=== PATIENT | female | born 1970 | race African-American/Black ===

== ENCOUNTER 2021-08-10 11:49 | Emergency (ER) | payer SELFPAY ==
--- NOTE | 2021-08-10 | ECG_ITS ---
Test Reason : high blood pressure Blood Pressure : / mmHG Vent. Rate : 077 BPM Atrial Rate : 077 BPM P-R Int : 152 ms QRS Dur : 080 ms QT Int : 368 ms P-R-T Axes : 057 002 145 degrees QTc Int : 416 ms Normal sinus rhythm Voltage criteria for left ventricular hypertrophy ( R in aVL , Sokolow-Owen , [place] product ) Anterior infarct (cited on or before 25-JAN-2018) Abnormal ECG When compared with ECG of 25-JAN-2018 09:06, Nonspecific T wave abnormality now evident in Inferior leads T wave inversion now evident in Lateral leads Referred By: Generic ED Physician Electronically Signed By:STEPHAN WATKINS MD
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
[2021-08-10 12:03] VITALS: BP 252/138; PULSE 92; TEMP 36.8; O2SAT 98; BMI 35.0
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
[2021-08-10 15:03] VITALS: BP 220/110; RESP 18
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
[2021-08-10] MEDS: oxyCODONE HCl Immed Release 5 MG TABLET PO (15:44)
== END 2021-08-10 15:49 | disposition home or self-care (01) ==
PROVIDERS: Emergency Provider Emergency Medicine
DX: S20.213A Contusion of bilateral front wall of thorax, initial encounter (principal); R51.9 Headache, unspecified; V43.52XA Car driver injured in collision with other type car in traffic accident, initial encounter; Y93.9 Activity, unspecified; Y92.410 Unspecified street and highway as the place of occurrence of the external cause; Y99.9 Unspecified external cause status; Z79.899 Other long term (current) drug therapy
CPT/HCPCS: 71046; 93005; 99284

== ENCOUNTER 2022-05-23 10:18 | Emergency (ER) | payer MEDICARE, MEDICAID, SELFPAY ==
--- NOTE | ~2022-05-23 | XR_ITS ---
EXAMINATION: XR CHEST CLINICAL INFORMATION: Shortness of breath COMPARISON: Prior chest July 2021 TECHNIQUE: 2 views of the chest were obtained. FINDINGS: No significant abnormality is noted involving the heart, lungs, mediastinum, bony thorax or soft tissues. XR/XR chest 2V IMPRESSION: Unremarkable examination.
--- NOTE | ~2022-05-23 | CT_ITS ---
EXAMINATION: CT HEAD WITHOUT CONTRAST CLINICAL INFORMATION: Hypertension. COMPARISON: None TECHNIQUE: Contiguous axial imaging was performed from the skull base to vertex without intravenous administration of contrast. This CT examination was performed using dose optimization techniques as appropriate, variously including the following: *Automated exposure control *Adjustment of mA and/or kV according to patient size (this includes techniques or standardized protocols for targeted exams where dose is matched to indication/reason for exam; i.e. extremities or head) *Use of iterative reconstruction technique DLP: 648 mGy-cm FINDINGS: No intracranial hemorrhage, large infarction, or mass lesion is seen. No extra-axial collection is appreciated. The ventricles are normal in size and configuration without evidence of hydrocephalus. The visualized paranasal sinuses and mastoid air cells are clear. CT/CT head/brain wo IV con IMPRESSION: No acute intracranial finding.
--- NOTE | 2022-05-23 10:30 | ED.GENADULT ---
HPI - General Adult General Chief complaint: General Medical Stated complaint: High Bp Time Seen by Provider: 05/23/22 10:30 Source: patient Mode of arrival: ambulatory Limitations: no limitations History of Present Illness HPI narrative: Patient is a 51 year old assigned female at with a history of hypertension presenting to the emergency department today with high blood pressure and shortness of breath. Patient states that she was seen by her PCP 5 days ago and they recommended she come to the hospital but she wanted to wait. Patient states that she has a history of high blood pressure for which she takes hydralazine, clonidine, and amlodipine. Patient states that when she walks, she gets short of breath easily. Patient states that she needs multiple pillows behind her to sleep at night. Patient denies any dizziness, lightheadedness, abdominal pain, nausea, vomiting, fever, chills, blurry vision, double vision, loss of vision, chest pain, back pain, night sweats, pain with urination, increased urinary frequency, increased urinary urgency, blood in her urine or stool, syncope or a near syncopal episode, recent trauma or falls, bowel incontinence, bladder incontinence, bowel retention, bladder retention, or any other complaints at this time. Onset (ago): day(s) (5) Severity: mild Severity scale (1-10): 4 Relieving factors: none Exacerbating factors: none Associated symptoms: shortness of breath Treatments prior to arrival: none Related Data Previous Rx's Medication Instructions Recorded ibuprofen 600 mg tablet 600 mg PO Q6H PRN fever or pain 08/10/21 #30 tabs oxycodone-acetaminophen 7.5 mg-325 1 tab PO Q6H PRN pain #8 tabs 08/10/21 mg tablet (Percocet) Allergies Allergy/AdvReac Type Severity Reaction Status Date / Time No Known Allergies Allergy Unverified 04/04/20 19:31 [No Known Allergies*] Review of Systems Constitutional: Constitutional: Reports no additional constitutional complaints, Denies chills, Denies fever(s) and Denies night sweats Eyes: Eyes: Reports no additional eye complaints, Denies blurry vision, Denies change in vision, Denies diplopia, Denies eye discharge, Denies loss of vision and Denies eye pain ENT: Denies dizziness Cardiovascular: Cardiovascular: Reports no additional cardiovascular complaints, Denies chest pain, Denies lightheadedness, Denies Loss of Consciousness and Reports dyspnea Respiratory: Respiratory: Reports no additional respiratory complaints and Reports dyspnea Gastrointestinal: Gastrointestinal: Reports no additional gastrointestinal complaints, Denies abdominal pain, Denies melena, Denies hematochezia, Denies change in bowel habits and Denies change in stool character Genitourinary: Genitourinary: Denies hematuria, Denies urinary frequency, Denies dysuria, Denies urinary incontinence, Denies urinary hesitancy and Denies urinary urgency Musculoskeletal: Musculoskeletal: Reports no additional musculoskeletal complaints, Denies numbness and Denies tingling Neurologic: Denies dizziness, Denies loss of vision, Denies numbness and Denies tingling Psychiatric: Psychiatric: Reports no additional psychiatric complaints Endocrine: Endocrine: Reports no additional endocrine complaints Hematologic/Lymphatic: Hematologic/Lymphatic: Reports no additional hematologic/lymphatic complaints Allergic/Immunologic: Allergic/Immunologic: Reports no additional allergic/immunologic complaints PMFSH Past Medical History Attestation statement: The following information was validated with the patient. Source: old records reviewed Medical History Bipolar 1 disorder, depressed Hypertension PTSD (post-traumatic stress disorder) Social History Social History Alcohol intake: never Smoked in Last 30 Days: No Use of substances other than those prescribed or required for medical reasons: Yes Substance Use Type: Crack/Cocaine Substance Use Frequency Other:: history only not current Advance Directives: No Advance Directives Information Provided: Yes Patient : No Physical Exam ED Vital Signs: Vital Signs - 24 hr 05/23/22 10:32 05/23/22 10:57 05/23/22 11:16 Temperature 97 F Pulse Rate 85 88 88 Respiratory Rate 19 18 20 Blood Pressure 229/141 H 189/104 H 190/104 H Pulse Oximetry 98 100 98 Oxygen Delivery Method Room Air Room Air 05/23/22 11:56 05/23/22 12:39 05/23/22 13:20 Temperature Pulse Rate 81 77 77 Respiratory Rate 18 19 22 H Blood Pressure 176/98 H 166/92 H 185/102 H Pulse Oximetry 99 99 98 Oxygen Delivery Method Room Air Room Air Room Air BMI result Body Mass Index 30.9 Const General: cooperative, no acute distress, alert and awake Nutritional Appearance: well nourished Orientation/consciousness: patient oriented x3 Limitations: no limitations HENMT Head: Yes normal to inspection and Yes atraumatic Ears: hearing grossly normal bilaterally and external ears normal General nose exam: Normal external nose present, no nasal discharge noted and no epistaxis Face and sinus: Yes normal facial exam, No abrasion and No laceration Mouth: Normal oral and palatal mucosa present, no drooling and no muffled voice Eyes General: appearance normal, both eyes and all related structures Periorbital: periorbital findings normal Eyelids: Yes eyelids normal Conjunctivae: conjunctivae normal Pupils: Equal, round and reactive pupils present EOM: EOMs intact bilaterally Neck Neck: Yes normal visual inspection, Yes full ROM and Yes no lymphadenopathy Chest Chest palpation & inspection: normal inspection of the chest Resp Effort & Inspection: normal respiratory effort and able to speak in complete sentences Auscultation: clear to auscultation bilaterally Cardio Rate: regular rate Rhythm: regular rhythm GI Inspection: Yes normal to inspection Palpation (GI): Soft to palpation, not firm, nontender and no guarding Neuro General: patient oriented x3 and moves all extremities Cranial nerves: Yes Equal, round and reactive pupils present Cognition (Neuro): normal cognition Motor exam (neuro): 5/5 motor strength present throughout Sensory Exam: Normal double simultaneous stimulation for sensation Coordination: [id number] test normal Extrem General: Yes normal to inspection, Yes full ROM and Yes capillary refill normal Psych Appearance: grossly normal Mental Status: mental status grossly normal Affect: normal affect Attitude: cooperative Thought process: Normal thought process present Thought content: Normal thought content present Insight: Good insight present (Psych) Medical Decision Making [facility] Narrative Medical decision making narrative: Patient is a 51 year old assigned female at with a history of HTN presenting to the emergency department today with shortness of breath and hypertension. Patient's physical exam showed hypertension but was otherwise unremarkable. Patient's blood work showed a markedly elevated BNP of 852, an initial elevated troponin of 19.2 with a repeat troponin of 20.2. Patient's EKG was unremarkable. Patient's chest x-ray and head CT showed no acute process. Patient was given IV lasix which helped her blood pressure significantly. Patient's clinical presentation is most consistent with fluid overload / fluid retention / congestive heart failure exacerbation. I explained my physical exam findings as well as all test results to the patient. I answered all questions asked by the patient. I explained to the patient that she would need admission for continued IV diuretics however, the patient stated that she absolutely would not be staying in the hospital. I explained to the patient that leaving against medical advice would put her at risk for heart attack, stroke, , permanent disability, etc. Patient verbalized understanding of all those said risks and stated that she still wants to leave against medical advice. I stressed the importance of the patient returning to the emergency department immediately if her symptoms were to worsen or if she were to develop any dizziness, shortness of breath, difficulty breathing, chest pain, blurry vision, loss of vision, nausea, vomiting, abdominal pain, fever, chills, back pain, or any other complaints. Patient verbalized understanding and left against medical advice. Medical Records Medical records reviewed: Yes I reviewed the patient's medical records. Lab Data Lab results reviewed: Yes I reviewed the patient's lab results. Result diagrams: 05/23/22 10:59 05/23/22 10:59 Labs: Lab Results 05/23/22 05/23/22 05/23/22 Range/Units 10:59 10:59 10:59 WBC 5.1 (4.8-10.8) X10*3/uL RBC 4.60 (4.20-5.50) X10*6/uL Hgb 12.0 (12.0-16.0) g/dl Hct 37.5 (37.0-47.0) % MCV 81.5 (80.0-98.0) fL MCH 26.1 L (27.0-33.0) pg MCHC 32.0 (31.0-35.0) g/dl RDW 15.1 (11.0-16.0) % Plt Count 208 (160-400) X10*3/uL MPV 9.5 (9.4-12.3) fL Immature Gran % (Auto) 0.2 (0.0-0.4) % Neut % (Auto) 50.0 (45-73) % Lymph % (Auto) 37.4 (20-40) % [place] % (Auto) 10.2 (2-11) % Eos % (Auto) 2.0 (0-4) % Baso % (Auto) 0.2 (0-2) % Lymph # (Auto) 1.9 (1.2-4.9) X10*3/uL [place] # (Auto) 0.5 (0.1-1.2) X10*3/uL Eos # (Auto) 0.1 (0.0-0.4) X10*3/uL Baso # (Auto) 0.0 (0.0-0.2) X10*3/uL Abs Immat Gran (auto) 0.01 (0.00-0.03) X10*3/uL Absolute Neuts (auto) 2.5 (2.0-8.3) x10*3/uL Absolute Nucleated RBC 0.000 (0.0-0.012) X10*3/uL Nucleated RBC % (auto) 0.0 (0.0-0.2) /100WBC Sodium 143 (135-145) mmol/L Potassium 4.1 (3.3-5.1) mmol/L Chloride 109 H (96-108) mmol/L Carbon Dioxide 24 (22-29) mmol/L Anion Gap 14 (12-20) BUN 20 H (9-16) mg/dL Creatinine 1.36 (0.5-1.4) mg/dL Estim Creat Clear Calc 49.4 Estimated GFR 41 Random Glucose 80 (60-115) mg/dL Calcium 8.9 (8.4-10.2) mg/dL Magnesium 2.1 (1.6-2.6) mg/dL Total Bilirubin 0.4 (0.0-1.0) mg/dL AST 22 (5-31) U/L ALT 22 (0-31) U/L Alkaline Phosphatase 90 (39-117) U/L Troponin I High Sens 19.2 H (<3.5-17.0) ng/L B-Natriuretic Peptide (<100) pg/mL Total Protein 6.8 (6.5-8.0) g/dL Albumin 4.1 (3.5-5.0) g/dL Urine Color Urine Appearance Urine pH (5.0-9.0) Ur Specific [place] (1.005-1.025) Urine Protein (Neg-Trace) mg/dL Urine Glucose (UA) (Negative) mg/dL Urine Ketones (Negative) mg/dL Urine Blood (Negative) Urine Nitrite (Negative) Ur Leukocyte Esterase (Negative) 05/23/22 05/23/22 05/23/22 Range/Units 10:59 13:20 13:24 WBC (4.8-10.8) X10*3/uL RBC (4.20-5.50) X10*6/uL Hgb (12.0-16.0) g/dl Hct (37.0-47.0) % MCV (80.0-98.0) fL MCH (27.0-33.0) pg MCHC (31.0-35.0) g/dl RDW (11.0-16.0) % Plt Count (160-400) X10*3/uL MPV (9.4-12.3) fL Immature Gran % (Auto) (0.0-0.4) % Neut % (Auto) (45-73) % Lymph % (Auto) (20-40) % [place] % (Auto) (2-11) % Eos % (Auto) (0-4) % Baso % (Auto) (0-2) % Lymph # (Auto) (1.2-4.9) X10*3/uL [place] # (Auto) (0.1-1.2) X10*3/uL Eos # (Auto) (0.0-0.4) X10*3/uL Baso # (Auto) (0.0-0.2) X10*3/uL Abs Immat Gran (auto) (0.00-0.03) X10*3/uL Absolute Neuts (auto) (2.0-8.3) x10*3/uL Absolute Nucleated RBC (0.0-0.012) X10*3/uL Nucleated RBC % (auto) (0.0-0.2) /100WBC Sodium (135-145) mmol/L Potassium (3.3-5.1) mmol/L Chloride (96-108) mmol/L Carbon Dioxide (22-29) mmol/L Anion Gap (12-20) BUN (9-16) mg/dL Creatinine (0.5-1.4) mg/dL Estim Creat Clear Calc Estimated GFR Random Glucose (60-115) mg/dL Calcium (8.4-10.2) mg/dL Magnesium (1.6-2.6) mg/dL Total Bilirubin (0.0-1.0) mg/dL AST (5-31) U/L ALT (0-31) U/L Alkaline Phosphatase (39-117) U/L Troponin I High Sens 20.2 H (<3.5-17.0) ng/L B-Natriuretic Peptide 852 H (<100) pg/mL Total Protein (6.5-8.0) g/dL Albumin (3.5-5.0) g/dL Urine Color Yellow Urine Appearance Clear Urine pH 7.0 (5.0-9.0) Ur Specific [place] 1.015 (1.005-1.025) Urine Protein Negative (Neg-Trace) mg/dL Urine Glucose (UA) Negative (Negative) mg/dL Urine Ketones Negative (Negative) mg/dL Urine Blood Negative (Negative) Urine Nitrite Negative (Negative) Ur Leukocyte Esterase Negative (Negative) Imaging Data Chest x-ray: Attestation: I personally reviewed and interpreted this imaging study as follows: My impression: No acute process. Radiologist's impression: EXAMINATION: XR CHEST CLINICAL INFORMATION: Shortness of breath COMPARISON: Prior chest July 2021 TECHNIQUE: 2 views of the chest were obtained. FINDINGS: No significant abnormality is noted involving the heart, lungs, mediastinum, bony thorax or soft tissues. XR/XR chest 2V IMPRESSION: Unremarkable examination. Dictated By: Torsten Marshall MD Signed By: Electronically signed by Torsten Marshall MD 05/23/[address] scan - head: Attestation: I personally reviewed and interpreted this imaging study as follows: My impression: No acute process. Radiologist's impression: EXAMINATION: CT HEAD WITHOUT CONTRAST CLINICAL INFORMATION: Hypertension.? COMPARISON: None TECHNIQUE: Contiguous axial imaging was performed from the skull base to vertex without intravenous administration of contrast. This CT examination was performed using dose optimization techniques as appropriate, variously including the following: *Automated exposure control *Adjustment of mA and/or kV according to patient size (this includes techniques or standardized protocols for targeted exams where dose is matched to indication/reason for exam; i.e. extremities or head) *Use of iterative reconstruction technique DLP: 648 mGy-cm FINDINGS: No intracranial hemorrhage, large infarction, or mass lesion is seen. No extra-axial collection is appreciated. The ventricles are normal in size and configuration without evidence of hydrocephalus. The visualized paranasal sinuses and mastoid air cells are clear. CT/CT head/brain wo IV con IMPRESSION: ? No acute intracranial finding. Dictated By: Shankar Bartlett Signed By: Electronically signed by Shankar Bartlett 05/23/22 1214 Discharge Plan Discharge Clinical Impression: Elevated brain natriuretic peptide (BNP) level, Congestive heart failure, Fluid retention Patient Disposition: Left Against Medical Advice Instructions: Heart Failure (DC), Edema (ED) Additional Instructions: Follow up with your primary care provider. Return to the emergency department immediately if your symptoms worsen or if you develop any dizziness, shortness of breath, difficulty breathing, chest pain, blurry vision, loss of vision, nausea, vomiting, abdominal pain, fever, chills, back pain, or any other complaints. Prescriptions: No Action oxycodone-acetaminophen [Percocet] 7.5-325 mg tablet 1 tab PO Q6H PRN (Reason: pain) Qty: 8 0RF ibuprofen 600 mg tablet 600 mg PO Q6H PRN (Reason: fever or pain) Qty: 30 0RF Referrals: Hugh De León PA [Primary Care Provider] - Stand Alone Forms: Against Medical Advice Interventions: ED Discharge Assessment Last Done: 05/23/22 14:20 Discharge Date/Time: 05/23/22 14:23 Print Language: Frisian
[2022-05-23 10:32] VITALS: BP 229/141; PULSE 85; RESP 19; TEMP 36.1; O2SAT 98; BMI 30.9
--- NOTE | 2022-05-23 10:36 | ECG_ITS ---
Test Reason : HIGHBP Blood Pressure : / mmHG Vent. Rate : 092 BPM Atrial Rate : 092 BPM P-R Int : 154 ms QRS Dur : 080 ms QT Int : 360 ms P-R-T Axes : 054 -02 090 degrees QTc Int : 445 ms Normal sinus rhythm Possible Left atrial enlargement Nonspecific T wave abnormality Left ventricular hypertrophy ( R in aVL , Sokolow-Owen , [place] product ) Abnormal ECG When compared with ECG of 10-AUG-2021 12:55, Nonspecific T wave abnormality no longer evident in Inferior leads T wave inversion no longer evident in precordial leads Referred By: Generic ED Physician Electronically Signed By:MAURICE FORD MD
[2022-05-23 10:57] VITALS: BP 189/104; PULSE 88; RESP 18; O2SAT 100
--- NOTE | 2022-05-23 11:00 | PC.NURSE ---
denies mondragon/dizziness, cp/ states sob was on 05/15 and has resolved. skin pwd. LS CTA, ax0x3. no neuro dficits noted. no ectopy on monitor at htis time. EKG has been seen by Provider. pt states that SOB resolved with prednisone. aware of plan for CT and labs.
[2022-05-23 11:05] LABS: MANUAL DIFF FLAG NO
[2022-05-23 11:07] LABS: Basophils Percent Auto 0.2 % (0-2); Eosinophils Absolute Auto 0.1 X10*3/uL (0.0-0.4); Hematocrit 37.5 % (37.0-47.0); Imm Gran Abs Auto 0.01 X10*3/uL (0.00-0.03); Imm Gran Pct Auto 0.2 % (0.0-0.4); Lymphocytes Absolute Auto 1.9 X10*3/uL (1.2-4.9); Lymphocytes Percent Auto 37.4 % (20-40); Mean Corpuscular Hemoglobin 26.1 pg (27.0-33.0); Mean Corpuscular Volume 81.5 fL (80.0-98.0); Mean Platelet Volume 9.5 fL (9.4-12.3); Monocytes Absolute Auto 0.5 X10*3/uL (0.1-1.2); Monocytes Percent Auto 10.2 % (2-11); Neutrophils Absolute Auto 2.5 x10*3/uL (2.0-8.3); Platelet Count 208 X10*3/uL (160-400); Red Cell Distribution Width 15.1 % (11.0-16.0); White Blood Count 5.1 X10*3/uL (4.8-10.8)
[2022-05-23 11:16] VITALS: BP 190/104; PULSE 88; RESP 20; O2SAT 98
[2022-05-23 11:23] LABS: Alanine Aminotransferase 22 U/L (0-31); Albumin Level 4.1 g/dL (3.5-5.0); Alkaline Phosphatase 90 U/L (39-117); Anion Gap 14 (12-20); Aspartate Amino Transferase 22 U/L (5-31); Bilirubin Total 0.4 mg/dL (0.0-1.0); Blood Urea Nitrogen 20 mg/dL (9-16); Calcium 8.9 mg/dL (8.4-10.2); Carbon Dioxide 24 mmol/L (22-29); Chloride 109 mmol/L (96-108); Creatinine Clr Calc Pharmacy 49.4; Estimated Glomerular Filt Rate 41; Glucose Random 80 mg/dL (60-115); Magnesium 2.1 mg/dL (1.6-2.6); Potassium 4.1 mmol/L (3.3-5.1); Sodium 143 mmol/L (135-145); Total Protein 6.8 g/dL (6.5-8.0)
[2022-05-23 11:29] LABS: Troponin-I High Sensitivity 19.2 ng/L (<3.5-17.0)
[2022-05-23 11:30] LABS: B Type Natriuretic Peptide 852 pg/mL (<100)
[2022-05-23 11:56] VITALS: BP 176/98; PULSE 81; RESP 18; O2SAT 99
[2022-05-23] MEDS: Furosemide 40 MG/4 ML VIAL IVPUSH (12:36)
[2022-05-23 12:39] VITALS: BP 166/92; PULSE 77; RESP 19; O2SAT 99
[2022-05-23 13:20] VITALS: BP 185/102; PULSE 77; RESP 22; O2SAT 98
[2022-05-23 13:53] LABS: Troponin-I High Sensitivity 20.2 ng/L (<3.5-17.0)
[2022-05-23 14:16] LABS: Appearance Urine Clear; Color Urine Yellow; Glucose Urine UA Negative (Negative); Leukocyte Esterase Urine Negative (Negative); Nitrite Urine Negative (Negative); Specific Gravity - Urine 1.015 (1.005-1.025); Urine Blood Negative (Negative); Urine Ketones Negative (Negative); Urine Protein Negative (Neg-Trace)
== END 2022-05-23 14:23 | disposition left against medical advice (07) ==
PROVIDERS: Physician Assistant Medical; Emergency Provider Emergency Medicine; PCP Physician Assistant Medical
DX: I11.0 Hypertensive heart disease with heart failure (principal); I50.9 Heart failure, unspecified; R60.9 Edema, unspecified; R06.02 Shortness of breath; Z79.899 Other long term (current) drug therapy
CPT/HCPCS: 36415; 70450; 71046; 80053; 81003; 83735; 83880; 84484; 85025; 93005; 96374; 99284; 99285; J1940

== ENCOUNTER 2023-02-08 17:01 | Emergency (ER) | payer MEDICARE, MEDICAID, SELFPAY ==
--- NOTE | ~2023-02-08 | CT_ITS ---
CT ORBITS WITH CONTRAST HISTORY: 52 years old Female, right eye pain, hypertension TECHNIQUE: CT images of the orbits were acquired with 85 mL Omnipaque [address] examination was performed using dose optimization techniques as appropriate, variously including the following: *Automated exposure control *Adjustment of mA and/or kV according to patient size (this includes techniques or standardized protocols for targeted exams where dose is matched to indication/reason for exam; i.e. extremities or head) *Use of iterative reconstruction technique DLP: 142 mGy-cm COMPARISON: CT head earlier same day FINDINGS: There is asymmetric diffuse enlargement and hyperenhancement of the left lacrimal gland compatible with acute dacryoadenitis. There is no significant periglandular inflammatory stranding or discrete drainable fluid collection/abscess. No infiltration of the pre- or postseptal fat.The right globe is normal in appearance and symmetric with the contralateral left globe. No proptosis. Normal symmetric appearance of the extraocular muscles. Normal appearance of the imaged intracranial structures. The paranasal sinuses and imaged mastoid air cells are well aerated. Normal enhancement of the imaged intracranial vascular structures. Osseous structures are intact. CT/CT orbit BI w IV con IMPRESSION: Asymmetric diffuse enlargement and hyperenhancement of the left lacrimal gland compatible with acute dacryoadenitis, for which differential considerations include infectious, inflammatory (e.g. idiopathic orbital inflammation, IgG4-related disease, and Sjogren's disease), or granulomatous processes (e.g. sarcoidosis). The diffuse involvement is atypical for salivary gland neoplasm. No discrete drainable fluid collection/abscess in the pre- or postseptal soft tissues.
--- NOTE | ~2023-02-08 | CT_ITS ---
EXAMINATION: CT HEAD WITHOUT CONTRAST CLINICAL INFORMATION: Pain behind the right eye. COMPARISON: CT head from 05/23/2022. TECHNIQUE: Contiguous axial imaging was performed from the skull base to vertex without intravenous administration of contrast. This CT examination was performed using dose optimization techniques as appropriate, variously including the following: *Automated exposure control. *Adjustment of mA and/or kV according to patient size (this includes techniques or standardized protocols for targeted exams where dose is matched to indication/reason for exam; i.e. extremities or head). *Use of iterative reconstruction technique. DLP: 613 mGy-cm FINDINGS: There is no evidence of acute intracranial hemorrhage or edematous territorial infarction. [place]-white matter differentiation is preserved. There is no abnormal attenuation within the brain parenchyma. The ventricles are normal in morphology and size. No evidence for obstructive hydrocephalus. Partial flattening of the pituitary gland. The suprasellar cistern remains widely patent. No abnormal mass effect or midline shift. The cerebellar tonsils are normally positioned. No extra-axial fluid collections. No acute soft tissue or osseous abnormalities. The mastoid air cells and visualized paranasal sinuses are clear. Chronic mild depression of the left lamina papyracea. No demonstrated additional abnormalities of the orbits. CT/CT head/brain wo IV con IMPRESSION: No evidence of acute intracranial hemorrhage or edematous territorial infarction.
--- NOTE | ~2023-02-08 | XR_ITS ---
EXAMINATION: XR CHEST CLINICAL INFORMATION: Cough COMPARISON: Previous chest x-ray most recent May 2022 TECHNIQUE: Frontal view of the chest was obtained. FINDINGS: The cardiac and mediastinal contours are stable. The lungs are clear. No pleural effusion or pneumothorax. Degenerative changes of the spine. XR/XR chest 1V IMPRESSION: No evidence for acute disease in the chest.
[2023-02-08 17:04] VITALS: BP 259/157; PULSE 99; RESP 18; TEMP 36; O2SAT 98; BMI 33.5
--- NOTE | 2023-02-08 17:29 | ED.GENADULT ---
HPI - General Adult General Chief complaint: Eye Problems Stated complaint: pain behind right eye Time Seen by Provider: 02/08/23 20:45 Source: patient Mode of arrival: ambulatory History of Present Illness HPI narrative: 52-year-old female with uncontrolled blood pressure and chronic complaint of right eye pain without loss of vision. Patient states that she has been evaluated by her primary care provider but did not prescribed any new medications. Related Data Previous Rx's Medication Instructions Recorded ibuprofen 600 mg tablet 600 mg PO Q6H PRN fever or pain 08/10/21 #30 tabs oxycodone-acetaminophen 7.5 mg-325 1 tab PO Q6H PRN pain #8 tabs 08/10/21 mg tablet (Percocet) amlodipine 10 mg tablet (Norvasc) 10 mg PO DAILY #30 tabs 02/09/23 Allergies Allergy/AdvReac Type Severity Reaction Status Date / Time No Known Allergies Allergy Verified 02/08/23 17:03 [No Known Allergies*] Review of Systems Review of Systems: Pertinent positives and negatives as stated in HPI [facility] Past Medical History Source: nursing notes reviewed Medical History Bipolar 1 disorder, depressed Hypertension PTSD (post-traumatic stress disorder) Social History Social History Alcohol intake: never Smoked in Last 30 Days: No Use of substances other than those prescribed or required for medical reasons: Yes Substance Use Type: Marijuana Substance Use Frequency: Chronic Longstanding Advance Directives: No Advance Directives Information Provided: No Patient : No Physical Exam ED Vital Signs: Vital Signs - 24 hr 02/08/23 17:04 02/08/23 20:43 02/08/23 21:41 Temperature 96.8 F 97.9 F Pulse Rate 99 90 Respiratory Rate 18 22 H Blood Pressure 259/157 H 236/158 H 191/124 H Pulse Oximetry 98 94 Oxygen Delivery Method Room Air Room Air 02/08/23 22:22 02/08/23 22:50 02/09/23 00:10 Temperature 97.8 F Pulse Rate 78 93 98 Respiratory Rate 19 20 18 Blood Pressure 204/109 H 242/149 H 197/101 H Pulse Oximetry 97 97 99 Oxygen Delivery Method Room Air BMI result Body Mass Index 33.5 VITAL SIGNS: Reviewed. GENERAL: Well developed, well nourished, in no acute distress. HEAD: Normocephalic/atraumatic EYES: PERRLA, EOMI EARS: Ext canals without abnormality OROPHARYNX: no oral lesions noted, posterior pharynx clear NECK: Supple, no adenopathy LUNGS: Normal breath sounds. No adventitious sounds or accessory muscle use. SpO2<99> CARDIOVASCULAR: Regular rate and rhythm without noted murmurs ABDOMEN: Soft, non-tender, non-distended with bowel sounds. MUSCULOSKELETAL: No tenderness, deformities, or effusions noted on gross inspection. EXTREMITIES: No cyanosis, clubbing or edema. SKIN: Inspection of the skin reveals no rashes NEUROLOGIC: Alert and oriented x 4. Strength and sensation to light touch were grossly intact x 4, no facial asymmetry, no pronator drift, cranial nerves 2-12 are grossly intact. Course Course Course Narrative: 52-year-old female presents for evaluation of pain behind her right eye. She was referred by her wringer machine operator due to increasing intra-ocular pressure. Her wringer machine operator was requesting a CT scan of the brain. Patient was notably hypertensive at 257/157. Workup ordered. Medications Administered Discontinued Medications Generic Name Dose Route Start Last Admin Trade Name Freq PRN Reason Stop Dose Admin Acetaminophen 975 mg 02/08/23 18:43 02/08/23 18:49 Acetaminophen 325 Mg Tablet PO 02/08/23 18:44 975 mg ONCE ONE Administration Acetaminophen 975 mg 02/08/23 22:52 02/08/23 22:56 Acetaminophen 325 Mg Tablet PO 02/08/23 22:53 975 mg ONCE ONE Administration Furosemide 60 mg 02/08/23 21:48 02/08/23 22:18 Furosemide 100 Mg/10 Ml Vial IVPUSH 02/08/23 21:49 60 mg ONCE ONE Administration Protocol Hydralazine HCl 10 mg 02/08/23 22:51 02/08/23 22:57 Hydralazine Hcl 20 Mg/Ml Vial IVPUSH 02/08/23 22:52 10 mg ONCE ONE Administration Protocol Potassium Chloride 10 meq in 100 mls @ 100 mls/hr 02/08/23 22:00 02/09/23 00:08 Potassium Chloride/H20 IV 02/08/23 23:59 100 mls/hr Q1H HARSH Administration Labetalol HCl 5 mg 02/08/23 20:45 02/08/23 21:19 Labetalol Hcl 100 Mg/20 Ml Vial IVPUSH 02/08/23 20:46 5 mg ONCE ONE Administration Labetalol HCl 5 mg 02/08/23 21:47 02/08/23 22:18 Labetalol Hcl 100 Mg/20 Ml Vial IVPUSH 02/08/23 21:48 5 mg ONCE ONE Administration Labetalol HCl 10 mg 02/09/23 00:08 02/09/23 00:27 Labetalol Hcl 100 Mg/20 Ml Vial IVPUSH 02/09/23 00:09 10 mg ONCE ONE Administration Labetalol HCl 200 mg 02/09/23 00:08 02/09/23 00:27 Labetalol Hcl 200 Mg Tablet PO 02/09/23 00:09 200 mg ONCE ONE Administration Protocol Medical Decision Making Medical Decision Making MDM Narrative: 52-year-old female with history and clinical presentation, DDX: Hypertensive crisis, malignant hypertension, medication interaction, intracranial hemorrhage or ischemic etiology felt to be less likely. Patient received Tylenol and blood pressure medication. - Tylenol total 1950 mg - Lasix 60 mg - potassium chloride, 10 mEq x2 - labetalol total 20 mg, IVP - labetalol 200 mg, PO 0015: Patient is refusing admission. I reviewed all investigations with hematologic indices chronically stable and without evidence to suggest infection or anemia. On review of chemistry indices patient is noted to have a mild hypokalemia which was treated with a total of 20 mEq via IV, there is no noted low magnesium level, patient also noted to have worsening kidney function but comparison is almost 1-year-old and suspect that given patient's uncontrolled hypertension I do not suspect that this is an acute renal failure and instead simply a progressive renal failure. Troponin levels are chronically detectable but inconsistent with a suspected ischemic event especially as patient has no complaints of chest pain. BNP is noted to be elevated at 1326 for which she received Lasix but I do suspect a component of this is secondary to LVH and patient has no complaints of shortness of breath and is not noted to be hypoxic. Noncontrast head CT does not demonstrate any intracranial hemorrhage or acute mass effect, also performed and orbit CT with IV contrast and no reported abnormalities specifically related to the right orbit. Blood pressure is noted to finally be improving, she will receive an additional labetalol and both IVP and p.o. form. I will send the note to her primary care provider and strongly encouraged her to follow-up with this provider for additional blood pressure control medications. She remains nonfocal and has no headache at this time. Differential Diagnosis Differential Diagnoses: The differential diagnosis associated with the presentation includes Please see the discussion above Admission/Observation Consideration of admission/observation: Escalation of care including admission/observation considered Please see the discussion above. However, patient is refusing any admission at this time. Lab Data MDM Lab Attestation statement: I reviewed the patient's lab results. Please see the discussion above 02/08/23 18:11 02/08/23 18:11 Labs: Lab Results 02/08/23 02/08/23 02/08/23 Range/Units 18:11 18:11 18:11 WBC 5.9 (4.8-10.8) X10*3/uL RBC 5.42 (4.20-5.50) X10*6/uL Hgb 13.4 (12.0-16.0) g/dl Hct 42.9 (37.0-47.0) % MCV 79.2 L (80.0-98.0) fL MCH 24.7 L (27.0-33.0) pg MCHC 31.2 (31.0-35.0) g/dl RDW 14.6 (11.0-16.0) % Plt Count 230 (160-400) X10*3/uL MPV 9.6 (9.4-12.3) fL Immature Gran % (Auto) 0.2 (0.0-0.4) % Neut % (Auto) 40.0 L (45-73) % Lymph % (Auto) 49.3 H (20-40) % [place] % (Auto) 8.3 (2-11) % Eos % (Auto) 2.0 (0-4) % Baso % (Auto) 0.2 (0-2) % Lymph # (Auto) 2.9 (1.2-4.9) X10*3/uL [place] # (Auto) 0.5 (0.1-1.2) X10*3/uL Eos # (Auto) 0.1 (0.0-0.4) X10*3/uL Baso # (Auto) 0.0 (0.0-0.2) X10*3/uL Abs Immat Gran (auto) 0.01 (0.00-0.03) X10*3/uL Absolute Neuts (auto) 2.4 (2.0-8.3) x10*3/uL Absolute Nucleated RBC 0.000 (0.0-0.012) X10*3/uL Nucleated RBC % (auto) 0.0 (0.0-0.2) /100WBC Sodium 141 (135-145) mmol/L Potassium 3.0 L D (3.3-5.1) mmol/L Chloride 106 (96-108) mmol/L Carbon Dioxide 28 (22-29) mmol/L Anion Gap 10 L (12-20) BUN 18 H (9-16) mg/dL Creatinine 1.53 H (0.5-1.4) mg/dL Estim Creat Clear Calc 45.2 Estimated GFR 35 Random Glucose 121 H (60-115) mg/dL Calcium 9.2 (8.4-10.2) mg/dL Magnesium 2.0 (1.6-2.6) mg/dL Total Bilirubin 0.3 (0.0-1.0) mg/dL AST 18 (5-31) U/L ALT 11 (0-31) U/L Alkaline Phosphatase 95 (39-117) U/L Troponin I High Sens 20.9 H (<3.5-17.0) ng/L B-Natriuretic Peptide (<100) pg/mL Total Protein 7.0 (6.5-8.0) g/dL Albumin 3.9 (3.5-5.0) g/dL Lipase 22 (8-78) U/L // Range/Units 18:11 WBC (4.8-10.8) X10*3/uL RBC (4.20-5.50) X10*6/uL Hgb (12.0-16.0) g/dl Hct (37.0-47.0) % MCV (80.0-98.0) fL MCH (27.0-33.0) pg MCHC (31.0-35.0) g/dl RDW (11.0-16.0) % Plt Count (160-400) X10*3/uL MPV (9.4-12.3) fL Immature Gran % (Auto) (0.0-0.4) % Neut % (Auto) (45-73) % Lymph % (Auto) (20-40) % [place] % (Auto) (2-11) % Eos % (Auto) (0-4) % Baso % (Auto) (0-2) % Lymph # (Auto) (1.2-4.9) X10*3/uL [place] # (Auto) (0.1-1.2) X10*3/uL Eos # (Auto) (0.0-0.4) X10*3/uL Baso # (Auto) (0.0-0.2) X10*3/uL Abs Immat Gran (auto) (0.00-0.03) X10*3/uL Absolute Neuts (auto) (2.0-8.3) x10*3/uL Absolute Nucleated RBC (0.0-0.012) X10*3/uL Nucleated RBC % (auto) (0.0-0.2) /100WBC Sodium (135-145) mmol/L Potassium (3.3-5.1) mmol/L Chloride (96-108) mmol/L Carbon Dioxide (22-29) mmol/L Anion Gap (12-20) BUN (9-16) mg/dL Creatinine (0.5-1.4) mg/dL Estim Creat Clear Calc Estimated GFR Random Glucose (60-115) mg/dL Calcium (8.4-10.2) mg/dL Magnesium (1.6-2.6) mg/dL Total Bilirubin (0.0-1.0) mg/dL AST (5-31) U/L ALT (0-31) U/L Alkaline Phosphatase (39-117) U/L Troponin I High Sens (<3.5-17.0) ng/L B-Natriuretic Peptide 1326 H (<100) pg/mL Total Protein (6.5-8.0) g/dL Albumin (3.5-5.0) g/dL Lipase (8-78) U/L Independent Interpretation I performed an independent interpretation of an: EKG Interpretation: Normal sinus rhythm, HR-92, no STEMI, CO/QRS/QTC are within normal limits. Radiology Impression Radiologist Impression: No intracranial hemorrhage, and otherwise my interpretation is in agreement with radiology's impression. External Record Review External record reviewed: Outpatient record and Prior outpatient labs Chronic Conditions Patient?s care impacted by: Hypertension Critical Care Time Critical Care Time Critical Care Time: Yes Total Critical Care Time: 45 Attestation: I personally attest to this time spent taking care of the patient. Discharge Plan Discharge Clinical Impression: Malignant hypertension, Uncontrolled hypertension, Hypokalemia Patient Disposition: Left Against Medical Advice Instructions: Hypokalemia (ED), DASH Eating Plan (ED), Hypertension (ED) Additional Instructions: 1. Resume all home medications as prescribed. 2. Follow-up with your primary care provider by calling the office 1st thing in the morning. Return to the ER for any worsening symptoms. Prescriptions: New amlodipine [Norvasc] 10 mg tablet 10 mg PO DAILY Qty: 30 0RF No Action oxycodone-acetaminophen [Percocet] 7.5-325 mg tablet 1 tab PO Q6H PRN (Reason: pain) Qty: 8 0RF ibuprofen 600 mg tablet 600 mg PO Q6H PRN (Reason: fever or pain) Qty: 30 0RF Referrals: Hugh De León PA [Primary Care Provider] - Stand Alone Forms: Against Medical Advice
--- NOTE | 2023-02-08 17:31 | ECG_ITS ---
Test Reason : EYE PAIN Blood Pressure : / mmHG Vent. Rate : 092 BPM Atrial Rate : 092 BPM P-R Int : 170 ms QRS Dur : 088 ms QT Int : 388 ms P-R-T Axes : 058 -11 105 degrees QTc Int : 479 ms Normal sinus rhythm Right atrial enlargement Left ventricular hypertrophy with repolarization abnormality ( R in aVL , Sokolow-Owen , Isra product , Romhilt-Marsh ) Abnormal ECG When compared with ECG of 23-MAY-2022 10:40, No significant change was found Referred By: Ben Hagan Electronically Signed By:STEPHAN WATKINS MD
[2023-02-08 18:25] LABS: MANUAL DIFF FLAG NO
[2023-02-08 18:27] LABS: Basophils Percent Auto 0.2 % (0-2); Eosinophils Absolute Auto 0.1 X10*3/uL (0.0-0.4); Hematocrit 42.9 % (37.0-47.0); Hemoglobin 13.4 g/dl (12.0-16.0); Imm Gran Abs Auto 0.01 X10*3/uL (0.00-0.03); Imm Gran Pct Auto 0.2 % (0.0-0.4); Lymphocytes Absolute Auto 2.9 X10*3/uL (1.2-4.9); Lymphocytes Percent Auto 49.3 % (20-40); Mean Corpuscular HGB Conc 31.2 g/dl (31.0-35.0); Mean Corpuscular Hemoglobin 24.7 pg (27.0-33.0); Mean Corpuscular Volume 79.2 fL (80.0-98.0); Mean Platelet Volume 9.6 fL (9.4-12.3); Monocytes Absolute Auto 0.5 X10*3/uL (0.1-1.2); Monocytes Percent Auto 8.3 % (2-11); Neutrophils Absolute Auto 2.4 x10*3/uL (2.0-8.3); Platelet Count 230 X10*3/uL (160-400); Red Blood Count 5.42 X10*6/uL (4.20-5.50); Red Cell Distribution Width 14.6 % (11.0-16.0); White Blood Count 5.9 X10*3/uL (4.8-10.8)
[2023-02-08 18:45] LABS: Alanine Aminotransferase 11 U/L (0-31); Albumin Level 3.9 g/dL (3.5-5.0); Alkaline Phosphatase 95 U/L (39-117); Anion Gap 10 (12-20); Aspartate Amino Transferase 18 U/L (5-31); Bilirubin Total 0.3 mg/dL (0.0-1.0); Blood Urea Nitrogen 18 mg/dL (9-16); Calcium 9.2 mg/dL (8.4-10.2); Carbon Dioxide 28 mmol/L (22-29); Chloride 106 mmol/L (96-108); Creatinine Clr Calc Pharmacy 45.2; Estimated Glomerular Filt Rate 35; Glucose Random 121 mg/dL (60-115); Lipase 22 U/L (8-78); Sodium 141 mmol/L (135-145)
[2023-02-08] MEDS: Acetaminophen 325 MG TABLET 975 MG PO ×2 (18:49→22:56)
--- NOTE | 2023-02-08 18:50 | PC.NURSE ---
pt medicated for 9/10 R eye pain.
[2023-02-08 18:51] LABS: Troponin-I High Sensitivity 20.9 ng/L (<3.5-17.0)
[2023-02-08 20:43] VITALS: BP 236/158
[2023-02-08] MEDS: Labetalol HCL 100 MG/20 ML VIAL IVPUSH ×2 (21:19→22:18)
[2023-02-08 21:27] LABS: B Type Natriuretic Peptide 1326 pg/mL (<100)
[2023-02-08 21:41] VITALS: BP 191/124; PULSE 90; RESP 22; TEMP 36.6; O2SAT 94
[2023-02-08] MEDS: Furosemide 100 MG/10 ML VIAL 60 MG IVPUSH (22:18)
[2023-02-08] MEDS: Potassium Chloride/H20 10 MEQ/100 ML PIGGYBACK 100 MEQ IV (22:18)
[2023-02-08 22:22] VITALS: BP 204/109; PULSE 78; RESP 19; O2SAT 97
[2023-02-08 22:50] VITALS: BP 242/149; PULSE 93; RESP 20; O2SAT 97
[2023-02-08] MEDS: hydrALAZINE HCl 20 MG/ML VIAL 10 MG IVPUSH (22:57)
--- NOTE | 2023-02-08 23:48 | MHC.EDTECH ---
pt resting comfortably
[2023-02-09] MEDS: Potassium Chloride/H20 10 MEQ/100 ML PIGGYBACK 100 MEQ IV (00:08)
[2023-02-09 00:10] VITALS: BP 197/101; PULSE 98; RESP 18; TEMP 36.6; O2SAT 99
[2023-02-09] MEDS: Labetalol HCL 200 MG TABLET PO (00:27)
[2023-02-09] MEDS: Labetalol HCL 100 MG/20 ML VIAL 10 MG IVPUSH (00:27)
[2023-02-09 00:55] VITALS: BP 219/125
[2023-02-09] MEDS: hydrALAZINE HCl 20 MG/ML VIAL IVPUSH (01:02)
[2023-02-09 01:28] VITALS: BP 165/89; PULSE 80; RESP 18; O2SAT 97
--- NOTE | 2023-02-09 01:38 | PC.NURSE ---
Pt maintained hyertensive state throughout visit until final dose of medicatoin given. Pt declined admission despite conversations from both provider and this RN endorsing the severity of the diagnosis. Pt otherwise asymptomatic and per provider, with AMA, pt may return home. Discussed discharge and AMA ith patient, preparped pt to go home.
== END 2023-02-09 02:02 | disposition left against medical advice (07) ==
PROVIDERS: Physician Assistant; Emergency Provider Student in an Organized Health Care Education/Training Program; PCP Physician Assistant Medical
DX: E87.6 Hypokalemia (principal); I10 Essential (primary) hypertension; F12.90 Cannabis use, unspecified, uncomplicated
CPT/HCPCS: 36415; 70450; 70481; 71045; 80053; 83690; 83735; 83880; 84484; 85025; 93005; 96365; 96366; 96375; 96376; 99285; J1940

== ENCOUNTER → 2023-02-08 17:31 | Outpatient (BNV) | payer MEDICARE, MEDICAID, SELFPAY | PROVIDERS: Emergency Provider Student in an Organized Health Care Education/Training Program; PCP Physician Assistant Medical; Visit Provider Internal Medicine Cardiovascular Disease | DX: H57.11 Ocular pain, right eye (principal) | CPT/HCPCS: 93010 ==